=== PATIENT | female | born 1980 | race Caucasian/White ===

== ENCOUNTER 2017-03-13 14:39 | Outpatient (CLI) | payer BC, MEDICAID ==
[2017-03-13 15:39] LABS: APPEARANCE,URINE CLOUDY; BILIRUBIN,URINE NEGATIVE (NEGATIVE); CALCIUM OXALATE CRYSTALS,URINE TOO NUMEROUS TO CNT /HPF; GLUCOSE, URINE NEGATIVE (NEGATIVE); KETONES,URINE NEGATIVE (NEGATIVE); LEUKOCYTE ESTERASE,URINE TRACE (NEGATIVE); NITRITE,URINE NEGATIVE (NEGATIVE); PROTEIN,URINE 30 mg/dL (NEGATIVE); URINE SPECIFIC GRAVITY 1.021; UROBILINOGEN,URINE NEGATIVE mg/dL (<2.0)
[2017-03-13 15:53] LABS: URINE BARBITURATES SCREEN NEGATIVE; URINE METHADONE SCREEN NEGATIVE; URINE OPIATES LOW NEGATIVE; URINE PHENCYCLIDINE SCREEN NEGATIVE
--- NOTE | 2017-04-25 06:33 | Non Stress Test Report ---
Non Stress Test Datetime Report Generated by CPN: 04/25/2017 06:33 INDICATION Indication for Study: Ordered by Provider MONITORING Monitor Explained: Monitor Explained; Test Explained; Patient Verbalized Understanding Time on Monitor: 03/13/2017 15:26 Time off Monitor: 03/13/2017 16:20 NST Duration: 54 NST INTERVENTIONS NST Interventions: IV Fluids Physician Notified NST: P. CUELLAR, CNM BABY A: [id number] BABY A Movement : Present Contraction Frequency : occ FHR Baseline : 140 Accelerations : 15X15 Decelerations : None Variability : Moderate 6-25bpm NST Review: Meets Criteria for Reactive NST NST Review and Verified By : Tasha Medina RNC NST Results: Reactive NST REPORT Report Trigger: Send Report
== END 2017-03-13 17:05 | disposition home or self-care (01) ==
LOC: LC 14:39
PROVIDERS: ATTEND Obstetrics & Gynecology
DX: O26.893 Other specified pregnancy related conditions, third trimester (principal); E86.0 Dehydration; Z3A.33 33 weeks gestation of pregnancy
CPT/HCPCS: 80307; 81001

== ENCOUNTER 2017-04-25 06:40 | Inpatient (IN) | payer BC, MEDICAID ==
[2017-04-25] MEDS ORDERED: RINGERS SOLUTION,LACTATED 300 ML IV ONE (07:07)
[2017-04-25] MEDS ORDERED: OXYTOCIN/NORMAL SALINE 1,000 ML IV PRN ×3 (07:07→14:07)
[2017-04-25 07:30] LABS: ABSOLUTE EOSINOPHILS # (AUTO) 0.1 10^3/uL (0.0-0.6); ABSOLUTE LYMPHOCYTES (AUTO) 1.5 10^3/uL (0.5-4.7); ABSOLUTE MONOCYTES (AUTO) 0.6 10^3/uL (0.1-1.4); ABSOLUTE NEUT (AUTO) 5.9 10^3/uL (1.7-8.2); BASOPHILS % (AUTO) 0.2 % (0-2); EOSINOPHILS % (AUTO) 0.7 % (0-6); HEMATOCRIT 35.4 % (36.0-47.0); HEMOGLOBIN 12.2 g/dL (12.0-15.5); HGB HCT DIFFERENCE 1.2; LYMPHOCYTES % (AUTO) 18.9 % (13-45); MEAN CORPUSCULAR HEMOGLOBIN 32.2 pg (27.0-33.4); MEAN CORPUSCULAR HGB CONC 34.4 g/dL (32.0-36.0); MEAN CORPUSCULAR VOLUME 94 fl (80-97); MONOCYTES % (AUTO) 7.9 % (3-13); RED BLOOD COUNT 3.78 10^6/uL (3.72-5.28); RED CELL DISTRIBUTION WIDTH 13.6 % (11.5-14.0); SEGMENTED NEUTROPHILS % (AUTO) 72.3 % (42-78); WHITE BLOOD COUNT 8.1 10^3/uL (4.0-10.5)
[2017-04-25 07:48] LABS: URINE BARBITURATES SCREEN NEGATIVE; URINE METHADONE SCREEN NEGATIVE; URINE OPIATES LOW NEGATIVE; URINE PHENCYCLIDINE SCREEN NEGATIVE
[2017-04-25 07:49] LABS: APPEARANCE,URINE CLOUDY; BILIRUBIN,URINE NEGATIVE (NEGATIVE); GLUCOSE, URINE NEGATIVE (NEGATIVE); KETONES,URINE NEGATIVE (NEGATIVE); LEUKOCYTE ESTERASE,URINE MODERATE (NEGATIVE); NITRITE,URINE NEGATIVE (NEGATIVE); PROTEIN,URINE 30 mg/dL (NEGATIVE); URINE SPECIFIC GRAVITY 1.027; UROBILINOGEN,URINE NEGATIVE mg/dL (<2.0)
[2017-04-25] MEDS ORDERED: OXYTOCIN/NORMAL SALINE 20 UNIT/1,000 ML RTUINJ ONE (08:56)
[2017-04-25 08:59] LABS: AMNISURE (ROM) NEGATIVE (NEGATIVE)
--- NOTE | 2017-04-25 08:59 | L&D Progress Notes ---
PROGRESS NOTES Datetime Report Generated by CPN: 04/25/2017 08:58 PROGRESS NOTE Impression: Rupture of Membranes Impression Other: IOL-stable Procedures: Artificial ROM; Sterile Vag Exam Plan: Induction Informed Consent Obtained: Vaginal Delivery; Induction of Labor; Risks, Benefits and Alternatives Discussed Informed Consent Obtained: Vaginal Delivery; Risks, Benefits and Alternatives Discussed Vital Signs : Reviewed; Within Normal Limits Comment: S: reports irregular contractions and thinks she has been leaking amniotic fluid since yesterday. Desires epidural at some point for pain control O: VSS, cervix as stated, UC irregular A: IUP @ 40w0d IOL for polyhydramnious-stable, controlled AROM-clear fluid P: Amnisure obtained prior to AROM to r/o small leak since yesterday, start pitocin as planned for IOL. Reassess as needed, epidural prn. VAGINAL EXAM Dilatation: 5 Dilatation: 3 Effacement: 60 Effacement: 50 Station: -2 Station: -2 Contractions: irregular Contractions: rare MEMBRANES Membranes: Ruptured Membranes: Intact Amniotic Fluid Color: Clear FETUS A FHR - Baseline: 150 Monitoring: External US Variability: Moderate 6-25bpm Accelerations: 15X15 Decelerations: None FHR Category: Category I Presentation: Vertex SIGNATURE SIGNATURE: ,[id number];,[id number] SIGNATURE: [id number] Assignment: Chyna Jones MD Signature: with User ID: [email or web address] : with User ID: [email or web address]
[2017-04-25] MEDS: RINGERS SOLUTION,LACTATED 1,000 ML IV PRN ×2 (09:03→10:51)
[2017-04-25] MEDS ORDERED: MISOPROSTOL 0.2 MG TABLET ONE (09:26)
[2017-04-25] MEDS ORDERED: BUPIVACAINE HCL 0.25 % INJ/PF (2.5 MG/1 ML) 30 ML VIAL ONE (09:27)
[2017-04-25] MEDS ORDERED: LIDOCAINE 1% INJ-PF (10 MG/ML) 30 ML SDV ONE (09:27)
[2017-04-25] MEDS ORDERED: FENTANYL/BUPIVACAINE/NS/PF 200 MCG/100 ML RTUINJ EPI ONE (09:27)
[2017-04-25] MEDS ORDERED: EPHEDRINE SULFATE INJ 50 MG/1 ML AMPULE ONE (09:27)
[2017-04-25] MEDS ORDERED: LIDOCAINE 2% INJ-PF (20 MG/ML) 10 ML AMPUL ONE (12:55)
[2017-04-25] MEDS ORDERED: DIPH/PERTUSS(ACELL)/TETANUS VAC/PF 0.5 ML SYR (>=10YO) IM PRN (14:07)
[2017-04-25] MEDS ORDERED: DIBUCAINE 1% OINTMENT 28 GM TP PRN (14:07)
[2017-04-25] MEDS ORDERED: FENTANYL CITRATE INJ/PF 100 MCG/2 ML AMPUL IV ONE (14:07)
[2017-04-25] MEDS ORDERED: DIPHENHYDRAMINE HCL 25 MG CAPSULE PO PRN (14:07)
[2017-04-25] MEDS ORDERED: ACETAMINOPHEN WITH CODEINE #3 TABLET PO PRN ×2 (14:07)
[2017-04-25] MEDS ORDERED: BENZOCAINE/MENTHOL AEROSOL SPRAY 56 ML TOP PRN (14:07)
[2017-04-25] MEDS ORDERED: PROMETHAZINE HCL INJ 25 MG/1 ML VIAL IV PRN (14:07)
[2017-04-25] MEDS ORDERED: ACETAMINOPHEN 650 MG SUPP.RECT PR PRN (14:07)
[2017-04-25] MEDS ORDERED: MISOPROSTOL 0.2 MG TABLET PR ONE (14:07)
[2017-04-25] MEDS ORDERED: MAGNESIUM HYDROXIDE SUSP 30 ML UDCUP PO PRN (14:07)
[2017-04-25] MEDS ORDERED: PROMETHAZINE HCL 25 MG TABLET PO PRN (14:07)
[2017-04-25] MEDS ORDERED: PSEUDOEPHEDRINE HCL 30 MG TABLET PO PRN (14:07)
[2017-04-25] MEDS ORDERED: GLYCERIN/WITCH HAZEL LEAF 1 EACH MED..PAD TP PRN (14:07)
[2017-04-25] MEDS ORDERED: MEASLES,MUMPS&RUBELLA VACC/PF 0.5 ML VIAL SUBCUT PRN (14:07)
[2017-04-25] MEDS ORDERED: PROMETHAZINE HCL 25 MG SUPP.RECT PR PRN (14:07)
[2017-04-25] MEDS ORDERED: NA PHOS,M-B/NA PHOS,DI-BA (ADULT) 133 ML ENEMA PR PRN (14:07)
[2017-04-25] MEDS ORDERED: FENTANYL CITRATE INJ/PF 100 MCG/2 ML AMPUL ONE (14:23)
--- NOTE | 2017-04-25 16:02 | Admission Physical ---
Datetime Report Generated by CPN: 04/25/2017 16:01 CURRENT ADMISSION Chief Complaint: Scheduled Induction of Labor Indication for Induction: Polyhydramnios Admit Plan: Admit to Unit; Initiate Labor Induction Protocol ALLERGIES Medication Allergies: Yes Medication Allergies: clindamycin HCl/MO/facial and tong (04/25/2017); clindamycin phosphate/MO/facial and tong (04/25/2017); clindamycin palmitate HCl/MO/facial and tong (04/25/2017); Sulfa (Sulfonamide Antibiotics)/SV/Anaphylaxis (04/25/2017); erythromycin base/[place]/abdominal cramp (04/25/2017); sulfamethoxazole/SV/Anaphylaxis (04/25/2017); trimethoprim/SV/Anaphylaxis (04/25/2017); gentamicin/MO/facial and tong (04/25/2017) Medication Allergies: clindamycin HCl/MO/facial and tong (03/13/2017); clindamycin phosphate/MO/facial and tong (03/13/2017); clindamycin palmitate HCl/MO/facial and tong (03/13/2017); Sulfa (Sulfonamide Antibiotics)/SV/Anaphylaxis (03/13/2017); erythromycin base/[place]/abdominal cramp (03/13/2017); sulfamethoxazole/SV/Anaphylaxis (03/13/2017); trimethoprim/SV/Anaphylaxis (03/13/2017); gentamicin/MO/facial and tong (03/13/2017) Medication Allergies: clindamycin HCl/MO/facial and tong (01/07/2014); clindamycin phosphate/MO/facial and tong (01/07/2014); clindamycin palmitate HCl/MO/facial and tong (01/07/2014); Sulfa (Sulfonamide Antibiotics)/SV/Anaphylaxis (01/07/2014); erythromycin base/[place]/abdominal cramp (01/07/2014); sulfamethoxazole/SV/Anaphylaxis (01/07/2014); trimethoprim/SV/Anaphylaxis (01/07/2014); gentamicin/MO/facial and tong (01/07/2014) Latex: No Latex Allergies Food Allergies: none Environmental Allergies: none OBSTETRICAL HISTORY EDC: 04/25/2017 00:00 : 5 Para: 4 Term: 4 : 0 SAB: 0 IAB: 0 Ectopic: 0 Livin Cesareans: 0 VBACs: 0 Multiple Births: 0 Gestational Diabetes: No Rh Sensitization: No Incompetent Cervix: No URVASHI: No Infertility: No ART Treatment: No Uterine Anomaly: No IUGR: No Hx Previous C/S: No Macrosomia: No Hx Loss/Stillborn: No PIH: No Hx : No Placenta Previa/Abruption: No Depression/PP Depression: No PTL/PROM: No Post Hemorrhage: No Current Procedures: Ultrasound SEE RECORDS Alcohol: No Marijuana : No Cocaine: No Other Illicit Drugs: No Cigarettes: Never Smoker. 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 INFECTIOUS HISTORY Gonorrhea: No Genital Herpes: No Chlamydia: No Syphilis: No Hepatitis: No HIV/AIDS Exposure: No Rash or Viral Illness: No HPV: No PHYSICAL EXAM General: Normal HEENT: Normal Neurologic: Normal Thyroid: Normal Heart: Normal Lungs: Normal Breast: Deferred Back: Normal Abdomen: Normal Genitourinary Exam: Normal Extremities: Normal DTRs: Normal Pelvic Type: Adequate Physical Exam Comments: pelvis proven to 8#15oz Vital Signs: Reviewed VAGINAL EXAM Dilatation: 5 Dilatation: 3 Effacement: 60 Effacement: 50 Station: -2 Station: -2 Contraction Comments: irregular Contraction Comments: rare MEMBRANES Membranes: Ruptured Membranes: Intact Amniotic Fluid Color: Clear FETUS A EGA: 40.0 Monitoring: External US FHR- Baseline: 140 Variability: Moderate 6-25bpm Accelerations: 15X15 Decelerations: None Presentation: Vertex Admit Comment: 36yo at 40+0ega presents for IOL due to polyhydramnios. c/b polyhydramnios and hypothroid and AMA. She is currently on 100mcg Synthroid and will need medications . Pelvis proven to 8#15oz. Last REYNALDO 24.58. EFW 8#. Pelvis adequate for SANTINO. GBS negative. Anticipate . Vertex on last US. Will initiate pitocin. epidural on patient request. PLANS FOR LABOR AND DELIVERY Labor and Delivery: None Pain Management: Epidural Feeding Preference: Breast (Annotations: Data stored by [facility] on behalf of user) Benefit of Breast Feed Discussed: Yes INFORMED CONSENT Informed Consent Obtained: Vaginal Delivery; Induction of Labor; Risks, Benefits and Alternatives Discussed Informed Consent Obtained: Vaginal Delivery; Risks, Benefits and Alternatives Discussed Signature: with User ID: [email or web address]
[2017-04-25] MEDS ORDERED: IBUPROFEN 800 MG TABLET ONE (17:01)
[2017-04-25] MEDS: FERROUS SULFATE 325 MG TABLET PO SCH (17:48)
[2017-04-25] MEDS: DOCUSATE SODIUM 100 MG CAPSULE PO SCH (17:48)
[2017-04-25] MEDS: IBUPROFEN 800 MG TABLET PO SCH (21:17)
[2017-04-25] MEDS: FAMOTIDINE 20 MG TABLET PO SCH (21:18)
[2017-04-25] MEDS ORDERED: METHYLERGONOVINE MALEATE 0.2 MG TABLET PO ONE (22:45)
[2017-04-26] MEDS: IBUPROFEN 800 MG TABLET PO SCH ×3 (05:54→21:22)
[2017-04-26 07:50] LABS: HEMOGLOBIN 11.7 g/dL (12.0-15.5); HGB HCT DIFFERENCE 1.1; MEAN CORPUSCULAR HEMOGLOBIN 32.2 pg (27.0-33.4); MEAN CORPUSCULAR HGB CONC 34.5 g/dL (32.0-36.0); MEAN CORPUSCULAR VOLUME 93 fl (80-97); RED BLOOD COUNT 3.64 10^6/uL (3.72-5.28); RED CELL DISTRIBUTION WIDTH 13.6 % (11.5-14.0); WHITE BLOOD COUNT 13.4 10^3/uL (4.0-10.5)
--- NOTE | 2017-04-26 09:17 | PDOC PROGRESS REPORT ---
Subjective-OB Subjective: Post Delivery Day: 36 year old. Denies any needs at this time. Pt doing well, no concerns. She is voiding well, and reports light bleeding. Physical Exam (OB) Vital Signs: Temp Pulse Resp BP Pulse Ox 98.6 F 80 18 108/61 100 04/26/17 00:17 04/25/17 22:14 04/25/17 22:14 04/25/17 22:14 04/25/17 22:14 Intake & Output 04/25/17 04/26/17 04/27/17 06:59 06:59 06:59 Weight 59.2 kg - PIH/Pre-Eclampsia Clonus: Negative Headache: Absent Epigastric Pain: No Visual Changes: No - Lochia Lochia Amount: Scant < 10 ml Lochia Color: Rubra/Red - Abdomen Description: Soft Hernia Present: No Fundal Description: Firm, Midline Fundal Height: u/u - u/2 Objective-Diagnostic Laboratory: 04/25/17 07:17 Assessment and Plan(PN) - Assessment and Plan (1) Vaginal delivery Is this a current diagnosis for this admission?: Yes - Time Spent with Patient Time with patient: Less than 15 minutes Medications reviewed and adjusted accordingly: Yes - Disposition Anticipated Discharge: Home Within: within 24 hours
[2017-04-26] MEDS: DOCUSATE SODIUM 100 MG CAPSULE PO SCH ×2 (09:18→18:10)
[2017-04-26] MEDS: SENNOSIDES/DOCUSATE 8.6-50 MG 1 EACH TABLET PO SCH (09:18)
[2017-04-26] MEDS: FERROUS SULFATE 325 MG TABLET PO SCH ×2 (09:18→18:10)
[2017-04-26] MEDS: FAMOTIDINE 20 MG TABLET PO SCH ×2 (09:19→21:22)
[2017-04-26] MEDS: LEVOTHYROXINE SODIUM 0.1 MG TABLET PO SCH (09:20)
[2017-04-26] MEDS: METHYLERGONOVINE MALEATE 0.2 MG TABLET PO SCH ×2 (09:20→18:10)
[2017-04-26] MEDS ORDERED: PRENATAL VITAMIN W-O CA NO5/FE FUMARATE/FA CAPSULE PO SCH (10:00)
[2017-04-26] MEDS ORDERED: LANSOPRAZOLE 30 MG TAB.RAP.DR PO ONE (11:30)
[2017-04-27] MEDS: IBUPROFEN 800 MG TABLET PO SCH ×2 (05:08→14:29)
[2017-04-27] MEDS ORDERED: LANSOPRAZOLE 30 MG TAB.RAP.DR PO PRN (10:00)
[2017-04-27] MEDS: SENNOSIDES/DOCUSATE 8.6-50 MG 1 EACH TABLET PO SCH (10:00)
[2017-04-27] MEDS: METHYLERGONOVINE MALEATE 0.2 MG TABLET PO SCH (10:01)
[2017-04-27] MEDS: DOCUSATE SODIUM 100 MG CAPSULE PO SCH (10:01)
[2017-04-27] MEDS: FAMOTIDINE 20 MG TABLET PO SCH (10:02)
[2017-04-27] MEDS: FERROUS SULFATE 325 MG TABLET PO SCH (10:02)
[2017-04-27] MEDS: LEVOTHYROXINE SODIUM 0.1 MG TABLET PO SCH (10:02)
[2017-04-27 10:10] VITALS: BP 113/60
--- NOTE | 2017-04-27 10:32 | PDOC DISCHARGE SUMMARY ---
Final Diagnosis Discharge Date: 04/27/17 - Final Diagnosis (1) Hypothyroidism Is this a current diagnosis for this admission?: Yes (2) Is this a current diagnosis for this admission?: Yes (3) Vaginal delivery Is this a current diagnosis for this admission?: Yes Discharge Data - Discharge Medication Home Medications: Pnv W-O Ca No5/Fe Fumarate/FA [-U Multiple Vitamin Capsule] 1 each PO DAILY 11/26/11 Levothyroxine Sodium [Synthroid 0.1 mg Tablet] 100 mcg PO DAILY 12/19/11 Procedures: NST Intrapartum Procedure(s): Spontaneous Vaginal Delivery - Diagnosis Test Laboratory: Temp Pulse Resp BP Pulse Ox 98.3 F 67 16 113/60 98 04/27/17 10:09 04/27/17 10:09 04/27/17 10:09 04/27/17 10:04/27/17 10:04/25/17 04/25/17 04/26/17 06:48 07:17 06:20 RBC 3.78 3.64 L Hgb 12.2 11.7 L Hct 35.4 L 34.0 L Urine Opiates Screen NEGATIVE - Discharge information/Instructions Discharge Activity: Activity As Tolerated Discharge Diet: Regular Disposition: HOME, SELF-CARE Follow up with: [facility] in: 4
--- NOTE | 2017-05-03 09:26 | Delivery Summary ---
Del Sum A-C Datetime Report Generated by CPN: 05/03/2017 09:25 DELIVERY PERSONNEL DELIVERY PERSONNEL: [phone] DELIVERY PERSONNEL: [phone] DELIVERY PERSONNEL: [phone] Delivery Doctor:: Mark Rivera Labor and Delivery Nurse:: Susanna Hernandez RNaccounting office manager Nurse:: Jayde Haskins RN Nursery Nurse:: Bianca Rodriguez RN Nursery Nurse:: KALLIE West Tech/ABORIGINAL LIAISON OFFICER: Aida Reed CNA II MATERNAL INFORMATION Delivery Anesthesia: Epidural Medications After Delivery: Pitocin Bolus-Please Comment; Pitocin Drip 20 Units/1000ml NSS; Other-Please Comment Meds After Delivery Comment: Cytotec 1000mg MO Estimated Blood Loss (ml): 150 Maternal Complications: None Provider Comments: Pt. with strong urge to push and involuntarily pushing at 9cm. Pushed through cervix and quickly went on to deliver a viable baby boy through loose nuchal x1. Baby with vigorous respiratory effort and cry with tactile stimulation. Baby placed on maternal abdomen and cord allowed to stop pulsating then doubly clamped and cut by FOB (3vc noted). Nursery in room and evaluted baby on maternal abdomen. Placenta delivered spontaneously intact. Fundus firm @ u-1, bleeding stable. 1000mcg cytotec per rectum for prophylaxis. Mother and baby remain in room stable. LABOR SUMMARY EDC: 04/25/2017 00:00 No. Babies in Womb: 1 Attempted: No Labor Anesthesia: Epidural LABOR INFORMATION Reason for Induction: Polyhydramnios Onset of Labor: 04/25/2017 08:40 Complete Dilatation: 04/25/2017 13:42 Oxytocin: Induction Group B Beta Strep: negative Antibiotics # of Doses: 0 Steroids Given: None Reason Steroids Not Administered: Not Applicable MEMBRANES Membranes Rupture Method: Artificial Rupture of Membranes: 04/25/2017 08:40 Length of Rupture (hr): 5.03 Amniotic Fluid Color: Clear Amniotic Fluid Amount: Large Amniotic Fluid Odor: None STAGES OF LABOR Stage 1 hr: 5 Stage 1 min: 2 Stage 2 hr: 0 Stage 2 min: 0 Stage 3 hr: 0 Stage 3 min: 7 Total Time in Labor hr: 5 Total Time in Labor min: 9 VAGINAL DELIVERY Episiotomy: None Laceration Extension: N/A Laceration Type: None Other Laceration: Superficial abrasion Laceration Repair: Not Applicable Laceration Repair Note: small perineal abrasion, hemostatic no repair needed Sponge Count Correct: N/A Sharps Count Correct: N/A CSECTION DELIVERY Primary Indication: N/A BABY A INFORMATION Delivery Date/Time: 04/25/2017 13:42 Method of Delivery: Vaginal Born in Route : No : N/A Forceps: N/A Vacuum Extraction: N/A Shoulder Dystocia : No PRESENTATION/POSITION BABY A Presentation: Cephalic Cephalic Presentation: Vertex Vertex Position: Left Occipital Anterior Breech Presentation: N/A PLACENTA INFORMATION BABY A Placenta Delivery Time : 04/25/2017 13:49 Placenta Method of Delivery: Spontaneous Placenta Status: Delivered SCORES BABY A Heart Rate 1 min: >100 bpm Resp Effort 1 min: Good Cry Reflex Irritability 1 min: Cough or Sneeze or Pulls Away Muscle Tone 1 min: Active Motion Color 1 min: Blue/Pale Resuscitation Effort 1 min: Tactile Stimulation SCORE 1 MIN: 8 Heart Rate 5 min: >100 bpm Resp Effort 5 min: Good Cry Reflex Irritability 5 min: Cough or Sneeze or Pulls Away Muscle Tone 5 min: Active Motion Color 5 min: Body [place], Extremities Blue Resuscitation Effort 5 min: Tactile Stimulation SCORE 5 MIN: 9 INFANT INFORMATION BABY A Gestational Age at Delivery: 40.0 Gestational Status: Full Term- 39- 40.6 Weeks Outcome : Liveborn Condition : Stable Infant Sex: Male IDENTIFICATION BABY A Verification Date/Time: 04/25/2017 14:10 ID Band Number: [id number] Mother's Name Verified: Yes Infant RN Verifying : BL ROULUND, C YASSINE WEIGHT/LENGTH BABY A Birthweight (gm): 4190 Infant Weight (lb): 9 Infant Weight (oz): 4 Infant Length (in): 20.00 (Annotations: Data stored by Katharine on behalf of user) Length (cm): 50.80 CORD INFORMATION BABY A No. Cord Vessels: 3 Nuchal Cord : Around Neck x1, Loose Cord Blood Taken: Yes-For Eval (Mom's Blood Type - or O+) Suction: None ASSESSMENT BABY A Infant Complications: None Physical Findings at Delivery: Within Normal Limits Respirations: Appears Normal Skin to Skin: Yes Skin to Skin: Yes Physiotherapy Assistant/ALS Called : No Care By: Tasha REED RN Transferred To: [facility] BABY B INFORMATION : N/A SIGNATURES Assignment: Chyna Jones MD Signature: with User ID: [email or web address] : with User ID: [email or web address]
== END 2017-04-27 14:41 | disposition home or self-care (01) | DRG 775 ==
LOC: LR 06:40 → 2N 16:00
PROVIDERS: ADMIT Obstetrics & Gynecology; ATTEND Obstetrics & Gynecology
PROC: 10E0XZZ Delivery of Products of Conception, External Approach (ICD-10-PCS; principal; 2017-04-25)
PROC: 10907ZC Drainage of Amniotic Fluid, Therapeutic from Products of Conception, Via Natural or Artificial Opening (ICD-10-PCS; 2017-04-25)
PROC: 3E033VJ Introduction of Other Hormone into Peripheral Vein, Percutaneous Approach (ICD-10-PCS; 2017-04-25)
PROC: 4A1HXCZ Monitoring of Products of Conception, Cardiac Rate, External Approach (ICD-10-PCS; 2017-04-25)
DX: O40.3XX0 Polyhydramnios, third trimester, not applicable or unspecified (principal); O99.284 Endocrine, nutritional and metabolic diseases complicating childbirth; E03.9 Hypothyroidism, unspecified; O69.81X0 Labor and delivery complicated by cord around neck, without compression, not applicable or unspecified; Z88.3 Allergy status to other anti-infective agents; Z88.2 Allergy status to sulfonamides; Z3A.40 40 weeks gestation of pregnancy; Z37.0 Single live birth
CPT/HCPCS: 36415; 80307; 81005; 84112; 85025; 85027; 86592; 86850; 86900; 86901; 88307; J2590; J3010; J3490

== ENCOUNTER → 2018-06-18 | Outpatient (CLI) | payer BC, MEDICAID | LOC: OD 10:42 | PROVIDERS: ATTEND Obstetrics & Gynecology Gynecology | DX: O20.0 Threatened abortion (principal) | CPT/HCPCS: 36415; 84702 ==

== ENCOUNTER → 2019-03-15 | Outpatient (CLI) | payer BC | LOC: OD 13:23 | PROVIDERS: ATTEND Student in an Organized Health Care Education/Training Program | DX: O26.21 Pregnancy care for patient with recurrent pregnancy loss, first trimester (principal) | CPT/HCPCS: 36415; 84144 ==

== ENCOUNTER 2019-10-22 06:26 | Inpatient (IN) | payer BC, MEDICAID ==
[2019-10-22] MEDS ORDERED: RINGERS SOLUTION,LACTATED 300 ML IV ONE (06:37)
[2019-10-22 07:03] LABS: ABSOLUTE LYMPHOCYTES (AUTO) 1.3 10^3/uL (0.5-4.7); ABSOLUTE MONOCYTES (AUTO) 0.5 10^3/uL (0.1-1.4); ABSOLUTE NEUT (AUTO) 6.5 10^3/uL (1.7-8.2); BASOPHILS % (AUTO) 0.2 % (0-2); EOSINOPHILS % (AUTO) 0.5 % (0-6); HEMATOCRIT 37.2 % (36.0-47.0); HEMOGLOBIN 12.6 g/dL (12.0-15.5); MEAN CORPUSCULAR VOLUME 91 fl (80-97); MONOCYTES % (AUTO) 6.3 % (3-13); PLATELET COUNT 204 10^3/uL (150-450); RED BLOOD COUNT 4.07 10^6/uL (3.72-5.28); RED CELL DISTRIBUTION WIDTH 15.7 % (11.5-14.0); TOTAL CELLS COUNTED % (AUTO) 100 %; WHITE BLOOD COUNT 8.4 10^3/uL (4.0-10.5)
[2019-10-22] MEDS: RINGERS SOLUTION,LACTATED 1,000 ML IV PRN ×2 (07:13→10:57)
[2019-10-22 07:22] LABS: APPEARANCE,URINE SLIGHTLY-CLOUDY; BILIRUBIN,URINE NEGATIVE (NEGATIVE); COLOR,URINE YELLOW; GLUCOSE, URINE NEGATIVE (NEGATIVE); KETONES,URINE NEGATIVE (NEGATIVE); LEUKOCYTE ESTERASE,URINE SMALL (NEGATIVE); NITRITE,URINE NEGATIVE (NEGATIVE); PROTEIN,URINE NEGATIVE (NEGATIVE); URINE SPECIFIC GRAVITY 1.021; UROBILINOGEN,URINE NEGATIVE mg/dL (<2.0)
[2019-10-22 07:38] LABS: URINE AMPHETAMINES SCREEN NEGATIVE; URINE BARBITURATES SCREEN NEGATIVE; URINE BENZODIAZEPINES SCREEN NEGATIVE; URINE COCAINE SCREEN NEGATIVE; URINE MARIJUANA (THC) SCREEN NEGATIVE; URINE METHADONE SCREEN NEGATIVE; URINE PHENCYCLIDINE SCREEN NEGATIVE
[2019-10-22] MEDS ORDERED: MISOPROSTOL 0.2 MG TABLET ONE (08:20)
[2019-10-22] MEDS ORDERED: OXYTOCIN/NORMAL SALINE 20 UNIT/1,000 ML RTUINJ ONE (08:20)
[2019-10-22] MEDS ORDERED: LIDOCAINE 1% INJ-PF (10 MG/ML) 30 ML SDV ONE (08:20)
[2019-10-22] MEDS ORDERED: OXYTOCIN/NORMAL SALINE 20 UNIT/1,000 ML RTUINJ IV PRN ×2 (08:32→14:24)
--- NOTE | 2019-10-22 09:18 | Admission Physical ---
Datetime Report Generated by CPN: 10/22/2019 09:17 CURRENT ADMISSION Chief Complaint: Other Indication for Induction: Other Indication for Induction- Other: grand multip unstable lie, vertex in office yesterday Admit Impression : Term, Intrauterine Admit Impression- Other: IOL Admit Plan: Admit to Unit; Initiate Labor Induction Protocol ALLERGIES Medication Allergies: Yes Medication Allergies: clindamycin HCl/MO/facial and tong (10/22/2019); clindamycin phosphate/MO/facial and tong (10/22/2019); clindamycin palmitate HCl/MO/facial and tong (10/22/2019); Sulfa (Sulfonamide Antibiotics)/SV/Anaphylaxis (10/22/2019); erythromycin base/[place]/abdominal cramp (10/22/2019); sulfamethoxazole/SV/Anaphylaxis (10/22/2019); trimethoprim/SV/Anaphylaxis (10/22/2019); gentamicin/MO/facial and tong (10/22/2019) Latex: No Latex Allergies Food Allergies: n/a Environmental Allergies: n/a OBSTETRICAL HISTORY EDC: 10/29/2019 00:00 : 8 Para: 5 Term: 5 : 0 SAB: 2 IAB: 0 Ectopic: 0 Livin Cesareans: 0 VBACs: 0 Multiple Births: 0 Gestational Diabetes: No Rh Sensitization: No Incompetent Cervix: No URVASHI: No Infertility: No ART Treatment: No Uterine Anomaly: No IUGR: No Hx Previous C/S: No Macrosomia: No Hx Loss/Stillborn: No PIH: No Hx : No Placenta Previa/Abruption: No Depression/PP Depression: No PTL/PROM: No Post Hemorrhage: No Current Procedures: Ultrasound Obstetrical History Comments: G1- 38wks G2- 40.1wks G3- 40wks NVSD G4- 39.1wks G5- 40wks G6- 5wk SAB G7- 5wk SAB G8- current SEE RECORDS Alcohol: No Marijuana : No Cocaine: No Other Illicit Drugs: No Cigarettes: Never Smoker. 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: No Heart Disease: No Hosp/Surgery: Yes Autoimmune Disorder: No Anesthetic Complications: No Kidney Disease: No Abnormal Pap Smear: No Neuro/Epilepsy: No Psychiatric Disorders: No Other Medical Diseases: No Hepatitis/Liver Disease: No Significant Family History: No Varicosities/Phlebitis: No Trauma/Violence : No Thyroid Dysfunction: Yes Medical History Comments: hypothyroidisn, benign cyst removed from breast, back, wrist INFECTIOUS HISTORY Gonorrhea: No Genital Herpes: No Chlamydia: No Tuberculosis: No Syphilis: No Hepatitis: No HIV/AIDS Exposure: No Rash or Viral Illness: No HPV: No PHYSICAL EXAM General: Normal HEENT: Deferred Neurologic: Normal Thyroid: Deferred Heart: Normal Lungs: Normal Breast: Deferred Back: Normal Abdomen: Normal Genitourinary Exam: Deferred Extremities: Normal DTRs: Deferred Pelvic Type: Adequate Physical Exam Comments: arom with FSE Vital Signs: Reviewed VAGINAL EXAM Dilatation: 3 Effacement: 50 Station: -3 MEMBRANES Membranes: Ruptured Amniotic Fluid Color: Clear FETUS A EGA: 39.0 Monitoring: External US FHR- Baseline: 155 Variability: Moderate 6-25bpm Accelerations: 15X15 Decelerations: None FHR Category: Category I Presentation: Vertex Admit Comment: Admit for IOL GBS neg AMA Polyhydramnios resolved Vanishing twin pyelectasis rt kidney 3.6mm lt kidney 4.7mm PLANS FOR LABOR AND DELIVERY Labor and Delivery: None Pain Management: Medications; Epidural Feeding Preference: Breast Benefit of Breast Feed Discussed: Yes Circumcision: Yes INFORMED CONSENT Assignment: Renu Concepcion CNM Signature: with User ID: [email or web address] : with User ID: [email or web address]
[2019-10-22] MEDS ORDERED: PHENYLEPHRINE HCL INJ/PF 10 MG/1 ML SDV ONE (10:50)
[2019-10-22] MEDS ORDERED: FENTANYL CITRATE INJ/PF 100 MCG/2 ML AMPUL ONE (10:50)
[2019-10-22] MEDS ORDERED: FENTANYL/BUPIVACAINE/NS/PF 300 MCG/150 ML RTUINJ EPI ONE (10:51)
[2019-10-22] MEDS ORDERED: EPHEDRINE SULFATE INJ 50 MG/1 ML AMPULE ONE (10:51)
[2019-10-22] MEDS ORDERED: BUPIVACAINE HCL 0.25 % INJ/PF (2.5 MG/1 ML) 30 ML VIAL ONE (10:51)
[2019-10-22] MEDS ORDERED: DIBUCAINE 1% OINTMENT 28 GM TP PRN (14:24)
[2019-10-22] MEDS ORDERED: BENZOCAINE/MENTHOL AEROSOL SPRAY 56 ML TOP PRN (14:24)
[2019-10-22] MEDS ORDERED: MEASLES,MUMPS&RUBELLA VACC/PF 0.5 ML VIAL SUBCUT PRN (14:24)
[2019-10-22] MEDS ORDERED: ACETAMINOPHEN WITH CODEINE #3 TABLET PO PRN ×2 (14:24)
[2019-10-22] MEDS ORDERED: ZOLPIDEM TARTRATE 5 MG TABLET PO PRN (14:24)
[2019-10-22] MEDS ORDERED: DIPH/PERTUSS(ACELL)/TETANUS VAC/PF 0.5 ML SYR (>=10YO) IM PRN (14:24)
--- NOTE | 2019-10-22 16:03 | Delivery Summary ---
Del Sum A-C Datetime Report Generated by CPN: 10/22/2019 16:03 DELIVERY PERSONNEL DELIVERY PERSONNEL: [id number] Delivery Doctor:: Renu Concepcion CNM Labor and Delivery Nurse:: Elaine Ashraf RNtransformer assembly supervisor Nurse:: Jayde Haskins RN Human Service Coordinator/INJECTION SPECIALIST: Bibiana Ware, PATHOLOGICAL TECHNICIAN MATERNAL INFORMATION Delivery Anesthesia: Epidural Medications After Delivery: Pitocin Drip 20 Units/1000ml NSS; Cytotec 1000mcg Per Rectum/Vagina Meds After Delivery Comment: pitocin 20 units in 1000mL nss Delivery QBL: 143 Delivery QBL Comment: 143 Maternal Complications: None Provider Comments: SVDVM over intact perineum, OA to NOEL, ant shoulder delivered followed by post shoulder, body and cord. placed on maternal abd, dried and stimulated for initial cry. Cord clamped x 2 after 2 min, cut per FOB. 3VC noted. Placenta intact via sharp, minimal bleeding noted, cytotec placed prophylactically due to parity. Mother and infant stable. LABOR SUMMARY EDC: 10/29/2019 00:00 No. Babies in Womb: 5 Attempted: No Labor Anesthesia: Epidural LABOR INFORMATION Reason for Induction: Other Reason for Induction- Other: unstable lie Onset of Labor: 10/22/2019 08:59 Complete Dilatation: 10/22/2019 13:54 Oxytocin: Induction Group B Beta Strep: negative Antibiotics # of Doses: 0 Steroids Given: None Reason Steroids Not Administered: Not Applicable MEMBRANES Membranes Rupture Method: Artificial Rupture of Membranes: 10/22/2019 08:59 Length of Rupture (hr): 4.98 Amniotic Fluid Color: Clear Amniotic Fluid Amount: Moderate Amniotic Fluid Odor: Normal STAGES OF LABOR Stage 1 hr: 4 Stage 1 min: 55 Stage 2 hr: 0 Stage 2 min: 4 Stage 3 hr: 0 Stage 3 min: 7 Total Time in Labor hr: 5 Total Time in Labor min: 6 VAGINAL DELIVERY Episiotomy: None Laceration #1: None Laceration Extension #1: N/A Laceration Repair: Not Applicable Laceration Repair Note: n/a Sponge Count Correct: N/A Sharps Count Correct: N/A CSECTION DELIVERY Primary Indication: N/A Secondary Indication: N/A CSection Incidence: N/A Labor: N/A Elective: N/A CSection Incision: N/A BABY A INFORMATION Infant Delivery Date/Time: 10/22/2019 13:58 Method of Delivery: Vaginal Nurse Controlled Delivery: No Born in Route : No : N/A Forceps: N/A Vacuum Extraction: N/A Shoulder Dystocia : No PRESENTATION/POSITION BABY A Presentation: Cephalic Cephalic Presentation: Vertex Vertex Position: Right Occipital Anterior Breech Presentation: N/A PLACENTA INFORMATION BABY A Placenta Delivery Time : 10/22/2019 14:05 Placenta Method of Delivery: Spontaneous Placenta Status: Delivered SCORES BABY A Heart Rate 1 min: >100 bpm Resp Effort 1 min: Good Cry Reflex Irritability 1 min: Cough or Sneeze or Pulls Away Muscle Tone 1 min: Active Motion Color 1 min: Blue/Pale Resuscitation Effort 1 min: Tactile Stimulation SCORE 1 MIN: 8 Heart Rate 5 min: >100 bpm Resp Effort 5 min: Good Cry Reflex Irritability 5 min: Cough or Sneeze or Pulls Away Muscle Tone 5 min: Active Motion Color 5 min: Body [place], Extremities Blue Resuscitation Effort 5 min: Tactile Stimulation SCORE 5 MIN: 9 INFORMATION BABY A Gestational Age at Delivery: 39.0 Gestational Status: Full Term- 39- 40.6 Weeks Infant Outcome : Liveborn Condition : Stable Sex: Male IDENTIFICATION BABY A Infant Verification Date/Time: 10/22/2019 14:11 ID Band Number: [id number] Mother's Name Verified: Yes Infant RN Verifying Infant: B BAIDY, RN/ BL ROULUND, RN WEIGHT/LENGTH BABY A Birthweight (gm): 3574 Weight (lb): 7 Weight (oz): 14 Infant Length (in): 19.50 Length (cm): 49.53 CORD INFORMATION BABY A No. Cord Vessels: 3 Nuchal Cord : N/A Cord Blood Taken: Yes-For Eval (Mom's Blood Type - or O+) Infant Suction: None ASSESSMENT BABY A Infant Complications: Multiple Late Decels Physical Findings at Delivery: Within Normal Limits Infant Respirations: Appears Normal Skin to Skin: Yes Injection Mold Tooling Technician/ALS Called : No Infant Care By: B BAIDY, RN Transferred To: Remains with Mother BABY B INFORMATION : N/A SIGNATURES Assignment: Ciera Ambrose MD Signature: with User ID: [email or web address] : with User ID: [email or web address] : I was personally available for consultation and serving as supervising physician for the MLP.
[2019-10-22] MEDS: IBUPROFEN 800 MG TABLET PO SCH ×2 (16:41→22:30)
[2019-10-22] MEDS: SENNOSIDES/DOCUSATE 8.6-50 MG 1 EACH TABLET PO SCH (16:41)
[2019-10-22] MEDS: FERROUS SULFATE 325 MG TABLET PO SCH (17:55)
[2019-10-22] MEDS: DOCUSATE SODIUM 100 MG CAPSULE PO SCH (17:55)
[2019-10-23] MEDS: IBUPROFEN 800 MG TABLET PO SCH ×3 (06:23→21:45)
[2019-10-23 07:40] LABS: ABSOLUTE LYMPHOCYTES (AUTO) 1.2 10^3/uL (0.5-4.7); ABSOLUTE MONOCYTES (AUTO) 0.8 10^3/uL (0.1-1.4); ABSOLUTE NEUT (AUTO) 10.4 10^3/uL (1.7-8.2); BASOPHILS % (AUTO) 0.2 % (0-2); EOSINOPHILS % (AUTO) 0.3 % (0-6); HEMATOCRIT 32.8 % (36.0-47.0); HEMOGLOBIN 11.3 g/dL (12.0-15.5); LYMPHOCYTES % (AUTO) 9.4 % (13-45); MEAN CORPUSCULAR HEMOGLOBIN 31.6 pg (27.0-33.4); MEAN CORPUSCULAR HGB CONC 34.5 g/dL (32.0-36.0); MEAN CORPUSCULAR VOLUME 92 fl (80-97); MONOCYTES % (AUTO) 6.3 % (3-13); PLATELET COUNT 162 10^3/uL (150-450); RED BLOOD COUNT 3.58 10^6/uL (3.72-5.28); RED CELL DISTRIBUTION WIDTH 16.1 % (11.5-14.0); SEGMENTED NEUTROPHILS % (AUTO) 83.8 % (42-78); TOTAL CELLS COUNTED % (AUTO) 100 %; WHITE BLOOD COUNT 12.4 10^3/uL (4.0-10.5)
[2019-10-23] MEDS: SENNOSIDES/DOCUSATE 8.6-50 MG 1 EACH TABLET PO SCH (09:46)
[2019-10-23] MEDS: FERROUS SULFATE 325 MG TABLET PO SCH ×2 (09:46→17:30)
[2019-10-23] MEDS: DOCUSATE SODIUM 100 MG CAPSULE PO SCH ×2 (09:46→17:30)
[2019-10-23] MEDS: PRENATAL VITAMIN W DHA CAPSULE PO SCH (09:46)
--- NOTE | 2019-10-23 16:35 | PDOC PROGRESS REPORT ---
Subjective-OB Progress Note for:: 10/23/19 Subjective: reports bleeding slowing, pain controlled with current meds, denies needs. Physical Exam (OB) Vital Signs: Temp Pulse Resp BP Pulse Ox 98.1 F 72 16 101/63 99 10/23/19 08:03 10/23/19 08:03 10/23/19 08:03 10/23/19 08:03 10/23/19 08:03 Intake & Output 10/22/19 10/23/19 10/24/19 06:59 06:59 06:59 Intake Total 465 Balance 465 Weight 58.2 kg - Abdomen Description: Soft, Round Hernia Present: No Fundal Description: Firm Fundal Height: u/u - u/2 - Abdominal Distension: No distension Tenderness: Nontender - Extremities Lower extremities: Brianna's sign - neg Calf: Normal, Nontender Objective-Diagnostic Laboratory: 10/23/19 07:08 10/23/19 07:08 WBC 12.4 H RBC 3.58 L Hgb 11.3 L Hct 32.8 L MCV 92 MCH 31.6 MCHC 34.5 RDW 16.1 H Plt Count 162 Seg Neutrophils % 83.8 H Assessment and Plan(PN) - Time Spent with Patient Time with patient: Less than 15 minutes Medications reviewed and adjusted accordingly: Yes - Disposition Anticipated Discharge: Home Within: within 24 hours
[2019-10-24] MEDS: IBUPROFEN 800 MG TABLET PO SCH (05:30)
[2019-10-24 08:17] VITALS: BP 104/58
--- NOTE | 2019-10-24 09:10 | PDOC PROGRESS REPORT ---
Subjective-OB Progress Note for:: 10/24/19 Subjective: Doing well, no c/o, feeding baby, daughter in room, , eating well Physical Exam (OB) Vital Signs: Temp Pulse Resp BP Pulse Ox 97.8 F 70 16 104/58 L 98 10/24/19 08:16 10/24/19 08:16 10/24/19 08:16 10/24/19 08:16 10/24/19 08:16 Intake & Output 10/23/19 10/24/19 10/25/19 06:59 06:59 06:59 Intake Total 465 Balance 465 Weight 56.4 kg - PIH/Pre-Eclampsia DTR's: 2 + Clonus: Negative Headache: Absent Epigastric Pain: No Visual Changes: No - Lochia Lochia Amount: Scant < 10 ml Lochia Color: Rubra/Red - Abdomen Description: Soft, Round Hernia Present: No Fundal Description: Firm Fundal Height: u/u - u/2 Objective-Diagnostic Laboratory: 10/23/19 07:08 Assessment and Plan(PN) - Assessment and Plan (1) Vaginal delivery Is this a current diagnosis for this admission?: Yes (2) Unstable lie of fetus, antepartum Qualifiers: Fetus number: single or unspecified fetus Qualified Code(s): O32.0XX0 - Mat ernal care for unstable lie, not applicable or unspecified Is this a current diagnosis for this admission?: Yes (3) Polyhydramnios Qualifiers: Fetus number: single or unspecified fetus Trimester: third trimester Qualified Code(s): O40.3XX0 - Polyhydramnios, third trimester, not applicable or unspecified Is this a current diagnosis for this admission?: Yes (4) Advanced maternal age in Is this a current diagnosis for this admission?: Yes - Time Spent with Patient Time with patient: Less than 15 minutes Medications reviewed and adjusted accordingly: Yes - Disposition Anticipated Discharge: Home
--- NOTE | 2019-10-24 09:15 | PDOC DISCHARGE SUMMARY ---
Impression - Admit/DC Date/PCP Admission Date/Primary Care Provider: 10/22/19 06:26 PATRICIO HUGGINS MD Discharge Date: 10/24/19 - Discharge Diagnosis (1) Vaginal delivery Is this a current diagnosis for this admission?: Yes (2) Unstable lie of fetus, antepartum Is this a current diagnosis for this admission?: Yes (3) Polyhydramnios Is this a current diagnosis for this admission?: Yes (4) Advanced maternal age in Is this a current diagnosis for this admission?: Yes - Additional Information Resuscitation Status: Full Code Discharge Diet: As Tolerated Discharge Activity: Activity As Tolerated, Pelvic Rest Referrals: [facility] [Provider Group] (wha 4 weeks) Home Medications: Pnv W-O Ca No5/Fe Fumarate/FA [-U Multiple Vitamin Capsule] 1 each PO DAILY 11/26/11 Levothyroxine Sodium [Synthroid 0.1 mg Tablet] 100 mcg PO DAILY 12/19/11 HPI Gestational Age: 39 Reason(s) for Admission: Induction of Labor, Advanced Maternal Age Admission Note: Unstable lie Procedures: NST, Ultrasound Intrapartum Procedure(s): Spontaneous Vaginal Delivery Hospital Course Hospital Course: routine Results Laboratory Results: WBC 12.4 10^3/uL (4.0-10.5) H 10/23/19 07:08 RBC 3.58 10^6/uL (3.72-5.28) L 10/23/19 07:08 Hgb 11.3 g/dL (12.0-15.5) L 10/23/19 07:08 Hct 32.8 % (36.0-47.0) L 10/23/19 07:08 MCV 92 fl (80-97) 10/23/19 07:08 MCH 31.6 pg (27.0-33.4) 10/23/19 07:08 MCHC 34.5 g/dL (32.0-36.0) 10/23/19 07:08 RDW 16.1 % (11.5-14.0) H 10/23/19 07:08 Plt Count 162 10^3/uL (150-450) 10/23/19 07:08 Lymph % (Auto) 9.4 % (13-45) L 10/23/19 07:08 [place] % (Auto) 6.3 % (3-13) 10/23/19 07:08 Eos % (Auto) 0.3 % (0-6) 10/23/19 07:08 Baso % (Auto) 0.2 % (0-2) 10/23/19 07:08 Absolute Neuts (auto) 10.4 10^3/uL (1.7-8.2) H 10/23/19 07:08 Absolute Lymphs (auto) 1.2 10^3/uL (0.5-4.7) 10/23/19 07:08 Absolute Monos (auto) 0.8 10^3/uL (0.1-1.4) 10/23/19 07:08 Absolute Eos (auto) 0.0 10^3/uL (0.0-0.6) 10/23/19 07:08 Absolute Basos (auto) 0.0 10^3/uL (0.0-0.2) 10/23/19 07:08 Seg Neutrophils % 83.8 % (42-78) H 10/23/19 07:08 Urine Color YELLOW 10/22/19 06:42 Urine Appearance SLIGHTLY-CLOUDY 10/22/19 06:42 Urine pH 5.0 (5.0-9.0) 10/22/19 06:42 Ur Specific [place] 1.021 10/22/19 06:42 Urine Protein NEGATIVE mg/dL (NEGATIVE) 10/22/19 06:42 Urine Glucose (UA) NEGATIVE mg/dL (NEGATIVE) 10/22/19 06:42 Urine Ketones NEGATIVE mg/dL (NEGATIVE) 10/22/19 06:42 Urine Blood NEGATIVE (NEGATIVE) 10/22/19 06:42 Urine Nitrite NEGATIVE (NEGATIVE) 10/22/19 06:42 Urine Bilirubin NEGATIVE (NEGATIVE) 10/22/19 06:42 Urine Urobilinogen NEGATIVE mg/dL (<2.0) 10/22/19 06:42 Ur Leukocyte Esterase SMALL (NEGATIVE) H 10/22/19 06:42 Urine Ascorbic Acid 20 (NEGATIVE) H 10/22/19 06:42 Urine Opiates Screen NEGATIVE 10/22/19 06:42 Urine Methadone Screen NEGATIVE 10/22/19 06:42 Ur Barbiturates Screen NEGATIVE 10/22/19 06:42 Ur Phencyclidine Scrn NEGATIVE 10/22/19 06:42 Ur Amphetamines Screen NEGATIVE 10/22/19 06:42 U Benzodiazepines Scrn NEGATIVE 10/22/19 06:42 Urine Cocaine Screen NEGATIVE 10/22/19 06:42 U Marijuana (THC) Screen NEGATIVE 10/22/19 06:42 RPR NONREACTIVE (NONREACTIVE) 10/22/19 06:53 Blood Type O POSITIVE 10/22/19 06:53 Antibody Screen NEGATIVE 10/22/19 06:53 Plan Health Concerns: routine Plan of Treatment: discharge home, rev S&S to report Goals: no complications Time Spent: Less than 30 Minutes
[2019-10-24] MEDS: PRENATAL VITAMIN W DHA CAPSULE PO SCH (09:44)
[2019-10-24] MEDS: SENNOSIDES/DOCUSATE 8.6-50 MG 1 EACH TABLET PO SCH (09:44)
[2019-10-24] MEDS: FERROUS SULFATE 325 MG TABLET PO SCH (09:44)
[2019-10-24] MEDS: DOCUSATE SODIUM 100 MG CAPSULE PO SCH (09:45)
== END 2019-10-24 12:30 | disposition home or self-care (01) | DRG 807 ==
LOC: LR 06:26 → 2S 16:30
PROVIDERS: ADMIT Obstetrics & Gynecology; ATTEND Obstetrics & Gynecology
PROC: 10E0XZZ Delivery of Products of Conception, External Approach (ICD-10-PCS; principal; 2019-10-22)
PROC: 10907ZC Drainage of Amniotic Fluid, Therapeutic from Products of Conception, Via Natural or Artificial Opening (ICD-10-PCS; 2019-10-22)
DX: O99.284 Endocrine, nutritional and metabolic diseases complicating childbirth (principal); O76 Abnormality in fetal heart rate and rhythm complicating labor and delivery; O32.0XX0 Maternal care for unstable lie, not applicable or unspecified; E03.9 Hypothyroidism, unspecified; O40.3XX0 Polyhydramnios, third trimester, not applicable or unspecified; Z3A.39 39 weeks gestation of pregnancy; Z37.0 Single live birth; Z88.1 Allergy status to other antibiotic agents; Z79.890 Hormone replacement therapy
CPT/HCPCS: 36415; 80307; 81005; 85025; 86592; 86850; 86900; 86901; 94760; J2370; J2590; J3010; J3490